=== PATIENT | male | born 1945 | race Caucasian/White ===

== ENCOUNTER 2017-06-25 11:27 | Day surgery (SDC) | payer MEDICARE ==
[2012-07-27 18:15] VITALS: BMI 31.9
[2017-06-25] MEDS ORDERED: Lactated Ringer's 500 ML IV ONE (11:50)
[2017-06-25] MEDS ORDERED: Sodium Chloride 0.9% 250 ML IV ONE (11:50)
[2017-06-25] MEDS ORDERED: Propofol 10 mg/ml Inj (20 ML) ONE (12:04)
[2017-06-25] MEDS ORDERED: Etomidate 20 mg/10ml Inj IV ONE (12:04)
[2017-06-25 13:24] VITALS: PULSE 87; RESP 25; TEMP 97.6; O2SAT 98
[2017-06-25 13:35] VITALS: BP 115/55
== END 2017-06-25 14:29 | disposition home or self-care (01) ==
LOC: H.ENDO 11:27
PROVIDERS: ATTEND Internal Medicine Gastroenterology
DX: Z12.11 Encounter for screening for malignant neoplasm of colon (principal); I48.91 Unspecified atrial fibrillation; E03.9 Hypothyroidism, unspecified; E78.5 Hyperlipidemia, unspecified; E11.9 Type 2 diabetes mellitus without complications; I10 Essential (primary) hypertension; K57.30 Diverticulosis of large intestine without perforation or abscess without bleeding; K31.89 Other diseases of stomach and duodenum; R10.13 Epigastric pain
CPT/HCPCS: 43239; 88305; G0121; J2001; J2704; J7040